=== PATIENT | female | born 1985 | race Caucasian/White ===

== ENCOUNTER 2016-10-14 17:47 | Emergency (ER) | payer OTHER ==
[2016-10-14 21:26] VITALS: BP 109/74
== END 2016-10-14 20:23 | disposition home or self-care (01) ==
LOC: ED 17:47
DX: S92.912A Unspecified fracture of left toe(s), initial encounter for closed fracture (principal); Z88.2 Allergy status to sulfonamides; Z88.1 Allergy status to other antibiotic agents; X58.XXXA Exposure to other specified factors, initial encounter; Y93.02 Activity, running; Y99.8 Other external cause status; Y92.89 Other specified places as the place of occurrence of the external cause